=== PATIENT | female | born 2000 | race Caucasian/White ===

== ENCOUNTER 2021-09-03 16:36 | Emergency (ER) | payer OTHER | END 2021-09-03 19:15 | disposition home or self-care (01) | LOC: FER 16:36 | DX: R07.89 Other chest pain (principal); F17.290 Nicotine dependence, other tobacco product, uncomplicated; G40.909 Epilepsy, unspecified, not intractable, without status epilepticus; Z79.899 Other long term (current) drug therapy; Z88.1 Allergy status to other antibiotic agents | CPT/HCPCS: 36415; 71046; 84484; 85379; 93005 ==